=== PATIENT | female | born 1995 | race Caucasian/White ===

== ENCOUNTER 2019-06-15 19:48 | Emergency (ER) | payer OTHER ==
[~2019-06-15] VITALS: Ht 167.6 cm; Wt 72.6 kg
[2019-06-15] MEDS ORDERED: ONDANSETRON PF 4 MG/2 ML VIAL. IVP ONE (20:00)
[2019-06-15] MEDS ORDERED: IV NORMAL SALINE 1000ML BAG 1,000 ML IV ONE (20:00)
[2019-06-15] MEDS ORDERED: FAMOTIDINE 20 MG/2 ML VIAL IVP ONE (20:00)
[2019-06-15 20:05] LABS: BASO % 1 % (0-3); EOS # 0.1 x10^3/uL (0.0-0.7); EOS % 2 % (0-3); HEMATOCRIT 25.3 % (36.0-47.0); HEMOGLOBIN 8.7 g/dL (12.0-15.5); LYMPH # 2.2 x10^3/uL (1.0-4.8); LYMPH % 42 % (24-48); MEAN CORPUSCULAR HEMOGLOBIN 31 pg (25-35); MEAN CORPUSCULAR HGB CONC 34 g/dL (31-37); MEAN CORPUSCULAR VOLUME 91 fL (79-100); MONO # 0.3 x10^3/uL (0.0-1.1); MONO % 5 % (0-9); NEUT # 2.7 x10^3/uL (1.8-7.7); NEUT % 51 % (31-73); PLATELET COUNT 177 x10^3/uL (140-400); RED BLOOD COUNT 2.78 x10^6/uL (3.50-5.40); RED CELL DISTRIBUTION WIDTH 13.3 % (11.5-14.5); WHITE BLOOD COUNT 5.3 x10^3/uL (4.0-11.0)
[2019-06-15] MEDS ORDERED: ONDA4TAB12 PO (20:07)
--- NOTE | 2019-06-15 20:07 | PHYS DOC ---
Past Medical History Past Medical History Unable to obtain due to patient being uncooperative and intoxicated Past Surgical History Unable to obtain due to patient being uncooperative and intoxicated Social History Unable to obtain due to patient being uncooperative and intoxicated Adult General Chief Complaint Chief Complaint: Intoxicated, N/V HPI HPI 24-year-old female presents via EMS with report of nausea and vomiting and history of drinking alcohol all day at the [facility]. Per EMS patient apparently had stopped at the [place] [employer] after attending [facility] and subsequently vomited "all over the parking lot". Friend became concerned and called EMS. Patient reports "I don't want to be here" and is uncooperative with any questioning. Denies . History of present illness limited due to patient's intoxication and being uncooperative with questioning. Review of Systems Review of Systems GI: Reports vomiting Review of systems limited due to patient's intoxication and being uncooperative with questioning Current Medications Current Medications Current Medications Medications (Trade) Dose Ordered Sig/Susan Start Time Stop Time Status Last Admin Dose Admin Famotidine (Pepcid Vial) 20 mg 1X ONCE 06/15/19 20:00 06/15/19 21:00 DC 06/15/19 20:51 20 MG Ondansetron HCl (Zofran) 4 mg 1X ONCE 06/15/19 20:00 06/15/19 21:00 DC 06/15/19 20:51 4 MG Sodium Chloride 1,000 ml @ 1,000 mls/hr 1X ONCE 06/15/19 20:00 06/15/19 21:00 DC 06/15/19 20:50 1,000 MLS/HR Allergies Allergies Allergies Coded Allergies Type Severity Reaction Last Updated Verified Unable to Assess 06/15/19 No Physical Exam Physical Exam Constitutional: Well developed, well nourished, vomitus in hair and on face HENT: Normocephalic, atraumatic, oropharynx moist Eyes: Pupils dilated but responsive, horizontal nystagmus noted, conjunctiva normal, no discharge Neck: Normal range of motion, no tenderness, supple Cardiovascular: Heart rate normal, regular rhythm Lungs & Thorax: Bilateral breath sounds clear to auscultation, no wheezing Abdomen: Soft, no tenderness Skin: Warm, dry, no erythema, no rash Extremities: No tenderness, ROM intact, no edema Neurologic: Obtunded, moves all 4 extremities Current Patient Data Lab Values Laboratory Tests Test 06/15/19 19:55 White Blood Count 5.3 x10^3/uL (4.0-11.0) Red Blood Count 2.78 x10^6/uL (3.50-5.40) L Hemoglobin 8.7 g/dL (12.0-15.5) L Hematocrit 25.3 % (36.0-47.0) L Mean Corpuscular Volume 91 fL (79-100) Mean Corpuscular Hemoglobin 31 pg (25-35) Mean Corpuscular Hemoglobin Concent 34 g/dL (31-37) Red Cell Distribution Width 13.3 % (11.5-14.5) Platelet Count 177 x10^3/uL (140-400) Neutrophils (%) (Auto) 51 % (31-73) Lymphocytes (%) (Auto) 42 % (24-48) Monocytes (%) (Auto) 5 % (0-9) Eosinophils (%) (Auto) 2 % (0-3) Basophils (%) (Auto) 1 % (0-3) Neutrophils # (Auto) 2.7 x10^3/uL (1.8-7.7) Lymphocytes # (Auto) 2.2 x10^3/uL (1.0-4.8) Monocytes # (Auto) 0.3 x10^3/uL (0.0-1.1) Eosinophils # (Auto) 0.1 x10^3/uL (0.0-0.7) Basophils # (Auto) 0.0 x10^3/uL (0.0-0.2) Sodium Level 146 mmol/L (136-145) H Potassium Level 4.9 mmol/L (3.5-5.1) Chloride Level 107 mmol/L (98-107) Carbon Dioxide Level 29 mmol/L (21-32) Anion Gap 10 (6-14) Blood Urea Nitrogen 8 mg/dL (7-20) Creatinine 0.9 mg/dL (0.6-1.0) Estimated GFR (Cockcroft-Gault) 78.3 BUN/Creatinine Ratio 9 (6-20) Glucose Level 130 mg/dL (70-99) H Calcium Level 9.3 mg/dL (8.5-10.1) Magnesium Level 2.1 mg/dL (1.8-2.4) Total Bilirubin 0.2 mg/dL (0.2-1.0) Aspartate Amino Transferase (AST) 17 U/L (15-37) Alanine Aminotransferase (ALT) 14 U/L (14-59) Alkaline Phosphatase 55 U/L (46-116) Total Protein 7.5 g/dL (6.4-8.2) Albumin 4.3 g/dL (3.4-5.0) Albumin/Globulin Ratio 1.3 (1.0-1.7) Serum Test, Qualitative Negative (NEG) Ethyl Alcohol Level 250 mg/dL (0-10) H Laboratory Tests 06/15/19 19:55 Laboratory Tests 06/15/19 19:55 EKG EKG [] Radiology/Procedures Radiology/Procedures [] Course & Med Decision Making Course & Med Decision Making Pertinent Lab studies reviewed. (See chart for details) Patient presents via EMS with report of nausea and vomiting after drinking alcoh ol all day. Patient had been recently at the [facility]. Patient appears intoxicated and is uncooperative with any questioning. IV fluid hydration provided. Labs obtained and posted to chart. ETOH 250. Nausea and vomiting addressed. Patient allowed to sober in the emergency department. Friend presented to ED. Patient allowed to shower to clean self. Patient able to ambulate. Patient and friend requesting to be discharged home. Friend reports she will make sure patient gets home safely. Patient more interactive and complaint. Patient stable for discharge with outpatient follow-up with PCP. Discussed findings and plan with patient and friend, who acknowledge understanding and agreement. Dragon Disclaimer Dragon Disclaimer This electronic medical record was generated, in whole or in part, using a voice recognition dictation system. Departure Departure Impression: Primary Impression: Alcohol intoxication Additional Impression: Vomiting in adult patient Disposition: HOME, SELF-CARE Condition: STABLE Patient Instructions: Alcohol Intoxication, [id number], Nausea and Vomiting, [id number] Scripts Ondansetron (ONDANSETRON ODT) 4 Mg Tab.rapdis 1 TAB PO PRN Q6-8HRS PRN for NAUSEA, #16 TAB Prov: FAREED PETERSON DO 06/15/19 Problem Qualifiers Primary Impression: Alcohol intoxication Complication of substance-induced condition: with unspecified complication Qualified Codes: F10.929 - Alcohol use, unspecified with intoxication, unspecified FAREED PETERSON DO Jun 15, 2019 20:07
[2019-06-15 20:14] LABS: CALCIUM 9.3 mg/dL (8.5-10.1); CREATININE 0.9 mg/dL (0.6-1.0); GFR 78.3; POTASSIUM 4.9 mmol/L (3.5-5.1)
[2019-06-15 20:15] LABS: PREG TEST PT QUAL NEGATIVE (NEG)
[2019-06-15 20:20] LABS: ALBUMIN 4.3 g/dL (3.4-5.0); ALBUMIN/GLOBULIN RATIO 1.3 (1.0-1.7); MAGNESIUM 2.1 mg/dL (1.8-2.4); TOTAL BILIRUBIN 0.2 mg/dL (0.2-1.0); TOTAL PROTEIN 7.5 g/dL (6.4-8.2)
[2019-06-15 20:24] VITALS: BP 112/82
== END 2019-06-15 21:10 | disposition home or self-care (01) ==
LOC: ER 19:48
DX: F10.129 Alcohol abuse with intoxication, unspecified (principal); R11.2 Nausea with vomiting, unspecified; H55.00 Unspecified nystagmus; Y90.8 Blood alcohol level of 240 mg/100 ml or more
CPT/HCPCS: 36415; 80053; 83735; 84703; 85025; 96361; 96374; 96375; 99284; G0480; J2405; J3490; J7030